=== PATIENT | female | born 1960 | race African-American/Black ===

== ENCOUNTER 2018-08-17 13:35 | Emergency (ER) | payer OTHER ==
[~2018-08-17] VITALS: Wt 85.0 kg
[2018-08-17] MEDS ORDERED: ASPI81TA52 PO (14:38)
[2018-08-17] MEDS ORDERED: METF100010 PO (14:38)
[2018-08-17] MEDS ORDERED: ATOR10TA65 PO (14:43)
[2018-08-17] MEDS ORDERED: KETOROLAC 15 MG INJ IV STA (14:54)
--- NOTE | 2018-08-17 15:00 | ERD ---
ER Documentation Chief Complaint Chief Complaint AP RAD BACK X 2 WEEKS HPI 58-year-old female presenting with right upper quadrant pain radiating to her right flank for the past 2 weeks. The pain has been persistent, intermittently more severe. She describes the right upper quadrant pain as sharp and the right flank pain as burning. No associated fever, chills, cough, hemoptysis, nausea, vomiting, hematuria or dysuria. No alleviating or exacerbating factors. Today her pain was worse than usual which is why she is here. Her pain is an 8 out of 10. ROS All systems reviewed and are negative except as per history of present illness. Medications Home Meds Reported Medications Atorvastatin Calcium (Atorvastatin Calcium) 10 Mg Tablet, 10 MG PO QHS, #30 TAB 08/17/18 Metformin Hcl* (Metformin Hcl*) 1,000 Mg Tablet, 1000 MG PO WITH BREAKFAST DINNE, #60 TAB 08/17/18 Aspirin (Low Dose Aspirin) 81 Mg Tablet.dr, 81 MG PO DAILY, #30 TAB 08/17/18 Allergies Allergies: Coded Allergies: sulfamethoxazole (Verified Allergy, Unknown, rash itchy, 08/17/18) trimethoprim (Verified Allergy, Unknown, rash itchy, 08/17/18) PMhx/Soc History of Surgery: Yes (Eye surgery) Hx Miscellaneous Medical Probl: Yes (Diabetes) Hx Alcohol Use: No Hx Substance Use: No Hx Tobacco Use: No FmHx Family History: No diabetes Physical Exam Vitals Vital Signs Date Temp Pulse Resp B/P (MAP) Pulse Ox O2 O2 Flow FiO2 Time Delivery Rate 08/17/18 98.5 18 18 121/69 99 13:39 (86) Physical Exam Const: No acute distress Head: Atraumatic Eyes: Normal Conjunctiva ENT: Normal External Ears, Nose and Mouth. Neck: Full range of motion. No meningismus. Resp: Clear to auscultation bilaterally Cardio: Regular rate and rhythm, no murmurs. 2+ distal pulses in all 4 extremities Abd: Soft, right upper quadrant tenderness to palpation with no rebound or guarding. No masses. Non distended. Normal bowel sounds Skin: No petechiae or rashes Back: No midline or flank tenderness. No rash Ext: No cyanosis, or edema Neur: Awake and alert Psych: Normal Mood and Affect Result Diagram: 08/17/18 1533 08/17/18 1533 Results 24 hrs Laboratory Tests Test 08/17/18 15:33 08/17/18 16:25 White Blood Count 9.4 10^3/ul Red Blood Count 4.37 10^6/ul Hemoglobin 13.0 g/dl Hematocrit 39.2 % Mean Corpuscular Volume 89.7 fl Mean Corpuscular Hemoglobin 29.7 pg Mean Corpuscular Hemoglobin Concent 33.2 g/dl Red Cell Distribution Width 12.1 % Platelet Count 255 10^3/UL Mean Platelet Volume 9.7 fl Immature Granulocytes % 0.400 % Neutrophils % 63.9 % Lymphocytes % 26.9 % Monocytes % 6.9 % Eosinophils % 1.5 % Basophils % 0.4 % Nucleated Red Blood Cells % 0.0 /100WBC Immature Granulocytes # 0.040 10^3/ul Neutrophils # 6.0 10^3/ul Lymphocytes # 2.5 10^3/ul Monocytes # 0.7 10^3/ul Eosinophils # 0.1 10^3/ul Basophils # 0.0 10^3/ul Nucleated Red Blood Cells # 0.0 10^3/ul Sodium Level 143 mmol/L Potassium Level 4.1 mmol/L Chloride Level 107 mmol/L Carbon Dioxide Level 29 mmol/L Anion Gap 7 Blood Urea Nitrogen 13 mg/dl Creatinine 0.75 mg/dl Est Glomerular Filtrat Rate mL/min > 60 mL/min Glucose Level 105 mg/dl Calcium Level 9.2 mg/dl Total Bilirubin 0.5 mg/dl Direct Bilirubin 0.00 mg/dl Indirect Bilirubin 0.5 mg/dl Aspartate Amino Transf (AST/SGOT) 17 IU/L Alanine Aminotransferase (ALT/SGPT) 24 IU/L Alkaline Phosphatase 69 IU/L Total Protein 7.7 g/dl Albumin 4.2 g/dl Globulin 3.50 g/dl Albumin/Globulin Ratio 1.20 Lipase 106 U/L Urine Color YELLOW Urine Clarity SLIGHTLY CLOUDY Urine pH 5.0 Urine Specific [place] 1.018 Urine Ketones NEGATIVE mg/dL Urine Nitrite NEGATIVE mg/dL Urine Bilirubin NEGATIVE mg/dL Urine Urobilinogen NEGATIVE mg/dL Urine Leukocyte Esterase 1+ Donovan/ul Urine Microscopic RBC 2 /HPF Urine Microscopic WBC 13 /HPF Urine Squamous Epithelial Cells FEW /HPF Urine Mucus MODERATE /HPF Urine Hemoglobin NEGATIVE mg/dL Urine Glucose NEGATIVE mg/dL Urine Total Protein NEGATIVE mg/dl Current Medications Medications Dose Sig/Gage Start Time Status Last (Trade) Ordered Route PRN Stop Time Admin Dose Reason Admin Ketorolac 15 mg ONCE STAT 08/17/18 DC 08/17/18 Tromethamine IV 14:54 16:30 (Toradol) 08/17/18 15:01 Procedures/MDM EMERGENT LABS AND DIAGNOSTIC STUDIES: Lab Results above were reviewed and interpreted by me. CBC: no anemia or evidence of infection CMP: No evidence of clinically significant electrolyte abnormality, acidosis, renal failure, hypoglycemia, liver disease, or biliary obstruction Lipase: no evidence of pancreatitis UA: WBCs and leukocytes noted, however patient asymptomatic Radiology Results as interpreted by Radiology below were reviewed by Adina Barrera MD: Chest x-ray shows no acute abnormalities Ultrasound gallbladder shows an hemangioma but no evidence of gallstones or biliary obstruction CT abdomen and pelvis shows no acute abnormalities Initial Nursing notes reviewed. Previous Medical Records requested via the Electronic Health Record. EMERGENCY DEPARTMENT COURSE / MEDICAL DECISION MAKING: Patient is presenting with right upper quadrant and right flank pain for 2 weeks. Vitals are unremarkable and she is afebrile and well-appearing on exam. Differential includes but is not limited to biliary colic, biliary obstruction, acute cholecystitis, pancreatitis, hepatitis, lower lobe pneumonia, gastritis, colitis, cardiac pathology, aortic dissection, ureterolithiasis, pyelonephritis. However, I doubt cardiac or pulmonary pathology. Labs were ordered to evaluate for above and were unremarkable. Chest Xray ordered to evaluate for pneumonia and was read as normal by radiology. Ultrasound of the abdomen ordered to ev aluate gallbladder and showed no acute pathology. CT of the abdomen/pelvis was ordered and showed no acute pathology. At this moment the etiology of the abdominal pain is unknown. The patients v itals have been noted and are currently afebrile and hemodynamically stable. The workup, physical exam and observation period do not indicate a serious cause to the pain. The patients symptoms have improved while in the ED and the patient remains hemodynamically stable. Patient was able to tolerate PO. The current assessment has been explained to the patient including the fact that the etiology of the pain cannot be ruled out with certainty. Patient was advised that in the event this is early in the process of a more serious condition they may expect their symptoms to worsen and if so to return to the emergency department immediately. Patient was advised to follow up with primary care physician as soon as possible for re-evaluation within the next 1-2 days. All of the patients questions were answered. Patient verbalized understanding of plan and agrees. Advised to return to the ER for reevaluation within 12 hours if symptoms worsen. Patient's blood pressure was elevated (>120/80) but appears stable without evidence of hypertensive emergency or urgency. The patient was counseled about the risks of hypertension and urged to pursue outpatient monitoring and therapy within a week with their primary care physician. Departure Diagnosis: Primary Impression: Right flank pain Additional Impression: Abdominal pain Abdominal location: right upper quadrant Qualified Codes: R10.11 - Right upper quadrant pain Condition: Stable REBECCA BARRERA MD August 17, 2018 15:00
[2018-08-17 19:20] VITALS: BP 132/69; PULSE 78; RESP 18
== END 2018-08-17 19:21 | disposition home or self-care (01) ==
LOC: E/R 13:35
DX: R10.11 Right upper quadrant pain (principal); E11.9 Type 2 diabetes mellitus without complications; Z79.82 Long term (current) use of aspirin; Z79.84 Long term (current) use of oral hypoglycemic drugs
CPT/HCPCS: 36415; 71045; 74176; 76705; 80053; 81001; 83690; 85025; 96374; J1885; Z7502